=== PATIENT | female | born 1950 | race Caucasian/White ===

== ENCOUNTER 2018-06-23 09:10 | Inpatient (IN) | payer OTHER ==
[~2018-06-23] VITALS: Ht 160 cm; Wt 78.0 kg
== END 2018-07-06 20:49 | disposition home or self-care (01) | DRG 194 ==
LOC: ER 09:10 → SEC-K 17:49 → MEDJ 06-25 18:54
PROC: 3E0F7GC Introduction of Other Therapeutic Substance into Respiratory Tract, Via Natural or Artificial Opening (ICD-10-PCS; principal; 2018-06-23)
PROC: 4A033R1 Measurement of Arterial Saturation, Peripheral, Percutaneous Approach (ICD-10-PCS; 2018-06-23)
PROC: BB24ZZZ Computerized Tomography (CT Scan) of Bilateral Lungs (ICD-10-PCS; 2018-06-25)
PROC: 8E0ZXY6 Isolation (ICD-10-PCS; 2018-06-26)
DX: J09.X2 Influenza due to identified novel influenza A virus with other respiratory manifestations (principal); J45.41 Moderate persistent asthma with (acute) exacerbation; E86.0 Dehydration; E87.6 Hypokalemia; E83.39 Other disorders of phosphorus metabolism

== ENCOUNTER 2018-12-21 07:56 | Outpatient (CLI) | payer OTHER | END 2018-12-21 08:00 | disposition home or self-care (01) | LOC: NUCLEAR 07:56 | DX: I10 Essential (primary) hypertension (principal); I20.9 Angina pectoris, unspecified ==

== ENCOUNTER 2019-06-05 10:09 | Emergency (ER) | payer OTHER ==
[~2019-06-05] VITALS: Ht 160 cm; Wt 790.6 kg
[2019-06-05] MEDS ORDERED: PROTONIX40 MG (11:30)
[2019-06-05] MEDS ORDERED: SINGULAIR10 MG PO (11:30)
[2019-06-05] MEDS ORDERED: LOSARTAN-HCTZ1 EAC1 PO (11:30)
[2019-06-05] MEDS ORDERED: ADVAIR HFA 115/12 GM IH (11:31)
[2019-06-05] MEDS ORDERED: BACTRIM DS TAB1 EACH PO (15:57)
[2019-06-05] MEDS ORDERED: DICLOFENAC SODI50 MG PO (15:57)
[2019-06-05] MEDS ORDERED: INTESTINEX680 M1 PO (15:57)
== END 2019-06-05 16:41 | disposition home or self-care (01) ==
LOC: ER 10:09
DX: L03.116 Cellulitis of left lower limb (principal); B95.1 Streptococcus, group B, as the cause of diseases classified elsewhere

== ENCOUNTER 2020-04-03 08:27 | Outpatient (CLI) | payer OTHER ==
[~2020-04-03 08:27] MED LIST: ADVAIR HFA 115/12 GM IH; BACTRIM DS TAB1 EACH PO; DICLOFENAC SODI50 MG PO; INTESTINEX680 M1 PO; LOSARTAN-HCTZ1 EAC1 PO; PROTONIX40 MG; SINGULAIR10 MG PO
== END 2020-04-03 08:36 | disposition home or self-care (01) ==
LOC: RAD 08:27
PROVIDERS: ATTEND Internal Medicine Cardiovascular Disease
DX: M77.32 Calcaneal spur, left foot (principal); M79.672 Pain in left foot; M79.671 Pain in right foot

== ENCOUNTER 2021-09-13 06:00 | Day surgery (SDC) | payer OTHER ==
[~2021-09-13 06:00] MED LIST changes: +CLARITIN10 MG PO
== END 2021-09-13 17:15 | disposition home or self-care (01) ==
LOC: CIR.AMB 06:00
PROVIDERS: ATTEND Specialist
DX: D24.2 Benign neoplasm of left breast (principal); Z20.822 Contact with and (suspected) exposure to COVID-19

== ENCOUNTER → 2023-06-17 | Outpatient (CLI) | payer OTHER ==
[~2023-06-17] MED LIST changes: +CENTANY30 GM TOP; +NAPR500T14 PO
== END | disposition home or self-care (01) ==
LOC: NUCLEAR 07:00
PROVIDERS: ATTEND Internal Medicine
DX: I25.119 Atherosclerotic heart disease of native coronary artery with unspecified angina pectoris (principal); R06.00 Dyspnea, unspecified
CPT/HCPCS: 78452; 93017; A9500

== ENCOUNTER 2023-07-12 22:30 | Emergency (ER) | payer OTHER ==
[~2023-07-12] VITALS: Ht 162.6 cm; Wt 77.6 kg
[2023-07-13 01:01] LABS: HEMATOCRIT 37.9 % (36.0-45.00); HEMOGLOBIN 12.2 g/dL (12.0-15.00); MEAN CELL VOLUME 85.8 fL (80.00-100.00); MEAN CORPUSCULAR HEMOGLOBIN 27.6 pg (27.00-32.0); MEAN CORPUSCULAR HGB CONC 32.1 g/dl (32.0-36.0); PLATELET COUNT 290 K/uL (150-450); RED BLOOD COUNT 4.42 M/uL (4.00-6.00); RED CELL DISTRIBUTION WIDTH 14.6 % (11.5-14.5)
== END 2023-07-13 02:53 | disposition home or self-care (01) ==
LOC: ER 22:30
DX: J10.1 Influenza due to other identified influenza virus with other respiratory manifestations (principal); I10 Essential (primary) hypertension; Z20.822 Contact with and (suspected) exposure to COVID-19

== ENCOUNTER 2024-04-30 07:12 | Outpatient (CLI) | payer OTHER | END 2024-04-30 07:14 | disposition home or self-care (01) | LOC: TOM 07:12 | PROVIDERS: ATTEND Psychiatry & Neurology Clinical Neurophysiology | DX: R51.9 Headache, unspecified (principal) ==

== ENCOUNTER 2024-12-20 12:06 | Outpatient (CLI) | payer OTHER | END 2024-12-20 12:14 | disposition home or self-care (01) | LOC: MRI 12:06 | PROVIDERS: ATTEND Internal Medicine Cardiovascular Disease | DX: M19.90 Unspecified osteoarthritis, unspecified site (principal) | CPT/HCPCS: 73218 ==

== ENCOUNTER 2024-12-27 09:25 | Outpatient (CLI) | payer OTHER | END 2024-12-27 09:30 | disposition home or self-care (01) | LOC: SONOGRAMA 09:25 | DX: M76.71 Peroneal tendinitis, right leg (principal); M60.061 Infective myositis, right lower leg ==

== ENCOUNTER 2025-06-10 07:11 | Outpatient (CLI) | payer OTHER | END 2025-06-10 07:12 | disposition home or self-care (01) | LOC: NUCLEAR 07:11 | PROVIDERS: ATTEND Internal Medicine | DX: I20.9 Angina pectoris, unspecified (principal) | CPT/HCPCS: 78452; 93017; A9500; J0153 ==

== ENCOUNTER 2025-06-17 09:38 | Outpatient (CLI) | payer OTHER | END 2025-06-17 09:44 | disposition home or self-care (01) | LOC: RAD 09:38 | PROVIDERS: ATTEND Internal Medicine Cardiovascular Disease | DX: J09.X2 Influenza due to identified novel influenza A virus with other respiratory manifestations (principal) ==